=== PATIENT | male | born 1985 | race Two or more races ===

== ENCOUNTER 2024-06-09 16:05 | Emergency (ER) | payer OTHER ==
[~2024-06-09] VITALS: Ht 167.6 cm; Wt 83.9 kg
[2024-06-09 16:19] VITALS: TEMP 98.2
[2024-06-09 16:53] LABS: BASOPHILS # (AUTO) 0.1 K/uL (0.0-0.2); BASOPHILS % (AUTO) 0.8 % (0.0-2.0); EOSINOPHILS # (AUTO) 0.2 K/uL (0.0-0.7); EOSINOPHILS % (AUTO) 2.3 % (0.0-6.0); HEMATOCRIT 45 % (39-51); HEMOGLOBIN 15.6 g/dL (13.5-17.5); MEAN CORPUSCULAR HEMOGLOBIN 32 PG (26.0-33.0); MEAN CORPUSCULAR HGB CONC 35 g/dl (31.0-36.0); MEAN CORPUSCULAR VOLUME 91 fL (80-96); MONOCYTES # (AUTO) 0.5 K/uL (0.1-1.30); MONOCYTES % (AUTO) 7.8 % (2.0-12.0); NEUTROPHILS % (AUTO) 59.1 % (43.0-81.0); PLATELET COUNT (AUTO) 283 K/uL (150-450); RED BLOOD CELL COUNT(AUTO) 4.96 MIL/uL (4.5-6.0); RED CELL DISTRIBUTION WIDTH 12.6 % (11.5-15.0); WHITE BLOOD COUNT (AUTO) 6.7 K/uL (4.3-11.0)
[2024-06-09 17:07] LABS: CALCIUM, SERUM 9.2 mg/dL (8.5-10.1); CARBON DIOXIDE 29 mmol/L (21-32); CHLORIDE 100 mmol/L (98-107); GLUCOSE 88 mg/dL (74-106); POTASSIUM 3.9 mmol/L (3.5-5.1); SODIUM SERUM 135 mmol/L (136-145); UREA NITROGEN, BLOOD 12 mg/dL (7-18)
[2024-06-09 17:08] LABS: CREATININE 0.9 mg/dL (0.6-1.3)
[2024-06-09] MEDS ORDERED: ACETAMINOPHEN ES 500 MG TABLET ONE (19:30)
[2024-06-09] MEDS ORDERED: IBUPROFEN 600 MG TABLET ONE (19:30)
[2024-06-09] MEDS: IBUPROFEN 600 MG TABLET PO ONE (19:34)
[2024-06-09] MEDS: ACETAMINOPHEN ES 500 MG TABLET PO ONE (19:34)
[2024-06-09 23:48] VITALS: BP 133/79; O2SAT 97
== END 2024-06-09 19:42 | disposition home or self-care (01) ==
LOC: ER 16:12
DX: R07.89 Other chest pain (principal); R06.02 Shortness of breath; F17.200 Nicotine dependence, unspecified, uncomplicated
CPT/HCPCS: 36415; 71045-TC; 80048-TC; 84484-TC; 85025-TC